=== PATIENT | male | born 1955 | race African-American/Black ===

== ENCOUNTER 2018-01-16 14:22 | Inpatient (IN) | payer OTHER ==
[~2018-01-16] VITALS: Ht 193 cm; Wt 145.6 kg
--- NOTE | ~2018-01-16 | PR ---
[place], [place] PROGRESS NOTE NAME: DHAVAL LUBIN UNIT #: [id number] ROOM: 511 DOCTOR: JONATHAN SHEFFIELD,CHARISSE BIRTHDATE: [birth year] DOS: 01/18/2018 CARDIOLOGY FOLLOWUP: REASON FOR VISIT: Chest pain and bradycardia. SUBJECTIVE: The patient is feeling better. Denies any chest pain or shortness of breath. No dizziness, no orthopnea, no PND, no fever and chills. No nausea, vomiting or diarrhea. His heart rates are better after decreasing beta blockers. REVIEW OF SYSTEMS: Review of the 8 systems negative except as mentioned above. VITAL SIGNS: Blood pressure 136/76, pulse 60, respiratory rate 20. RHYTHM STRIPS: The patient in sinus rhythm with occasional sinus bradycardia. PHYSICAL EXAMINATION GENERAL: The patient is alert and oriented, in no acute distress. HEENT: Pupils are round and equal. No jaundice. Tongue was moist and pharynx was clear. NECK: Supple, no distended neck veins, no carotid bruit. CHEST: Symmetrical, nontender. LUNGS: Clear to auscultation bilaterally. HEART: Regular rhythm, no S3, no palpable thrills. ABDOMEN: Benign, nontender. Bowel sounds normal. EXTREMITIES: Positive for obesity. EXTREMITIES: Showed no edema. Distal pulses palpable. SKIN: Warm and dry. No cyanosis, no clubbing. GENITOURINARY: Deferred. RECTAL: Deferred. List of medications and labs reviewed as available. IMPRESSION: 1. Chest pain, atypical, myocardial infarction ruled out. 2. Sinus bradycardia, stable after decreasing beta blockers. 3. Coronary artery disease, status post 2 stents in 2004, details unknown. 4. Hypertension, stable. 5. Non-morbid obesity, the patient is counseled for diet, exercise and weight loss. 6. The patient wanted to go home today and then come back as an outpatient for his stress test. 7. Lexiscan stress test next week. 8. Recommend starting statins due to his known coronary artery disease. 9. Continue rest of his cardiac medications and he will be discharged home today and he will schedule for outpatient Lexiscan stress test. 10. Follow up with [facility] after his stress test. [place], [place] PROGRESS NOTE NAME: DHAVAL LUBIN UNIT #: [id number] ROOM: 511 DOCTOR: CHARISSE CASTILLO MD BIRTHDATE: [birth year] CHARISSE CASTILLO MD CM:MARTÍNEZ [id number] CHARISSE CASTILLO MD 01/19/187 interface
--- NOTE | ~2018-01-16 | CON ---
[place], [place] REPORT OF CONSULTATION NAME: DHAVAL LUBIN UNIT #: [id number] ROOM: 511 DOCTOR: CHARISSE CASTILLO MD BIRTHDATE: [birth year] DOS: 01/17/2018 CARDIOLOGY CONSULTATION. REASON FOR CONSULTATION: Chest pain. CLINICAL HISTORY: The patient is 62-year-old with a history of coronary artery disease, hypertension, dyslipidemia, GE acid reflux, came to Emergency Room for chest pain. His pain started about 4 days ago, is a constant sharp pain in the pericardial area. He also has some right-sided jaw pain that radiates to or through the right neck and then towards his center of the chest. This pain is more of a constant pain. He does not recall that this occurs on exertion. He has no associated symptoms. The patient had occasional twinging sensation near the left chest area that started yesterday. He did have some 1 time nausea and lightheadedness with this left-sided chest pain, but denies any shortness of breath. No PND, no orthopnea. He had longstanding tobacco use, but quit in 10/2017 and he gained about 10-15 pounds since then. He was admitted to the hospital and Cardiology consulted for further recommendations. At the time of my examination, the patient is alert. Denies any chest pain, shortness of breath. No palpitation, no dizziness, no orthopnea, no fever and chills. No nausea, vomiting, diarrhea. No headache. No tingling, numbness or weakness. No neurologic symptoms. So, apparently this pain started in the right jaw area with radiation down his right neck and then towards his chest. The symptom and pain was relieved by itself. REVIEW OF SYSTEMS: Review of the 10 system negative except as mentioned above. PAST MEDICAL HISTORY: 1. Coronary artery disease, status post 2 stents in 2004 at [facility]. 2. Hypertension. 3. Dyslipidemia. 4. Obesity. 5. Bipolar disorder. 6. Dyslipidemia. 7. Acid reflux. PAST SURGICAL HISTORY: 1. Cardiac enzymes. 2. Hernia surgery. 3. Deviated nasal septum surgery. 4. Cholecystectomy. 5. Left hip replacement. 6. Carpal tunnel surgery. SOCIAL HISTORY: The patient is a smoker and smoked about 20 years, a pack a day and quit in 10/2017. The patient does not use illicit drugs, but does drink 4-5 beers. ALLERGIES: The patient is allergic to SULFA, BENADRYL, and SEROQUEL. [place], [place] REPORT OF CONSULTATION NAME: DHAVAL LUBIN UNIT #: [id number] ROOM: [facility] DOCTOR: CHARISSE CASTILLO MD BIRTHDATE: [birth year] HOME MEDICATIONS: Reviewed including metoprolol and Glucotrol. FAMILY HISTORY: Father at 69 from heart failure. Mother at age 90 from dementia. PHYSICAL EXAMINATION: VITAL SIGNS: Blood pressure 136/86, pulse 83, respiratory rate 16, weight 145.6 kilos with a BMI 39.1. GENERAL: Alert, comfortable, in no acute distress. HEENT: Pupils round, equal. No jaundice. Tongue was moist and pharynx was clear. NECK: Supple, no distended neck veins, no carotid bruit. CHEST: Symmetrical, nontender. LUNGS: Clear to auscultation bilaterally. HEART: Regular rhythm, no S3, no palpable thrills. ABDOMEN: Benign, nontender. Bowel sounds normal. EXTREMITIES: Showed no edema. Distal pulses palpable. SKIN: Warm and dry. No cyanosis, no clubbing. RECTAL: Deferred. GENITOURINARY: Deferred. MUSCULOSKELETAL: No joint tenderness or swelling. Medications, allergies and EKG reviewed. EKG shows sinus rhythm, no acute ischemic changes. LABORATORY DATA: Significant chemistry unremarkable. Hemoglobin 10.8, platelets 186,000. Potassium 4.7, creatinine 1.35. Cardiac troponins are negative x 2. IMPRESSION: 1. Chest pain, atypical. 2. Sinus bradycardia, asymptomatic. 3. Chronic kidney disease. 4. Coronary artery disease status post 2 stents in 2004, details unknown. 5. Non-morbid obesity. 6. Anemia. 7. Bipolar disorder. 8. Tobacco use, quit 10/2017. 9. Diabetes, currently on insulin. RECOMMENDATIONS: 1. Currently, denies any chest pain. 2. Decrease metoprolol 25 b.i.d. and monitor his blood pressures and heart rates. 3. The patient had a stress test a little over a year ago in [place], the reports are not available. 4. Continue current cardiac medications. 5. I would recommend Lexiscan stress test. The patient would like to go home and come back as outpatient for stress test. [place], [place] REPORT OF CONSULTATION NAME: DHAVAL LUBIN UNIT #: [id number] ROOM: 511 DOCTOR: JONATHAN SHEFFIELD,CHARISSE BIRTHDATE: [birth year] 6. Continue current medications including aspirin, Plavix, metoprolol and Lasix. 7. I would recommend starting a statin therapy for known coronary artery disease. 8. Risk factor modification was discussed. 9. If the heart rate remains stable, possibly he will be discharged home tomorrow and we will schedule for outpatient stress test and echo. 10. We would like him to follow with [facility] in the future for his cardiac care. 11. There is no family at bedside at the time of examination. CHARISSE CASTILLO MD CM:CONSTR:REPORT OF CONSULTATION 42 01/20/18 0046 interface
[2018-01-16 14:33] VITALS: BP 142/67
[2018-01-16 14:42] LABS: BASO % 0.7 % (0.0-1.0); EOS # 0.3 10*3/uL (0.0-0.4); EOS % 4.6 % (1.0-4.0); HEMATOCRIT 33.7 % (42.0-52.0); HEMOGLOBIN 10.8 g/dl (14.0-18.0); LYMPH # 1.3 10*3/uL (1.3-4.4); MEAN CELL VOLUME 92.1 fl (80.0-94.0); MEAN CORPUSCULAR HGB 29.5 pg (27.0-31.0); MEAN PLATELET VOLUME 11.1 fl (9.6-12.3); MONO # 0.8 10*3/uL (0.1-1.0); NEUT # 3.5 10*3/uL (2.3-7.9); NEUT % 59.2 % (47.0-73.0); PLATELET COUNT AUTOMATED 186 10*3/uL (130-400); RED BLOOD COUNT 3.66 10*6/uL (4.50-5.90); RED CELL DISTRI WIDTH 15.5 % (0-14.5); WHITE BLOOD COUNT 5.9 10*3/uL (4.8-10.8)
[2018-01-16 14:52] LABS: ACT PARTIAL THROMBO TIME 25.5 SECONDS (20.8-31.5)
[2018-01-16 14:59] LABS: ALBUMIN 3.2 gm/dl (3.1-4.5); ALKALINE PHOSPHATASE 72 U/L (45-117); BUN 22 mg/dl (7-24); CHLORIDE 104 mmol/L (98-107); CREATININE 1.35 mg/dL (0.70-1.30); POTASSIUM 4.7 mmol/L (3.5-5.1); SGOT/AST 25 IU/L (3-35); SGPT/ALT 30 U/L (12-78); SODIUM 139 mmol/L (136-145); TOTAL PROTEIN 7.4 gm/dL (6.4-8.2)
[2018-01-16 15:01] LABS: TROPONIN I < 0.015 ng/ml (<0.045)
[2018-01-16 15:27] VITALS: BP 142/67
[2018-01-16 15:50] VITALS: BP 111/49
[2018-01-16 16:08] VITALS: BP 111/49
[2018-01-16 20:00] VITALS: BP 136/62
[2018-01-16] MEDS ORDERED: METOPROLOL SUC100 M2 PO (20:48)
[2018-01-16] MEDS ORDERED: GLUCOTROL10 MG PO (20:49)
[2018-01-17] VITALS: BP 147/76
[2018-01-17 06:58] LABS: BASO % 0.6 % (0.0-1.0); EOS # 0.3 10*3/uL (0.0-0.4); EOS % 4.3 % (1.0-4.0); HEMATOCRIT 34.7 % (42.0-52.0); LYMPH # 1.3 10*3/uL (1.3-4.4); LYMPH % 21.2 % (27.0-41.0); MEAN CELL VOLUME 91.8 fl (80.0-94.0); MEAN CORPUSCULAR HGB 29.1 pg (27.0-31.0); MEAN CORPUSCULAR HGB CONC 31.7 g/dl (33.0-37.0); MEAN PLATELET VOLUME 11.6 fl (9.6-12.3); MONO # 0.7 10*3/uL (0.1-1.0); MONO % 10.7 % (3.0-9.0); NEUT # 3.9 10*3/uL (2.3-7.9); NEUT % 62.9 % (47.0-73.0); PLATELET COUNT AUTOMATED 187 10*3/uL (130-400); RED BLOOD COUNT 3.78 10*6/uL (4.50-5.90); RED CELL DISTRI WIDTH 15.7 % (0-14.5); WHITE BLOOD COUNT 6.2 10*3/uL (4.8-10.8)
[2018-01-17 07:11] LABS: BUN 20 mg/dl (7-24); CHLORIDE 104 mmol/L (98-107); CHOLESTEROL 112 mg/dL (<200); CREATININE 1.29 mg/dL (0.70-1.30); PHOSPHOROUS 3.3 mg/dL (2.5-4.9); POTASSIUM 4.2 mmol/L (3.5-5.1); SODIUM 139 mmol/L (136-145); TRIGLYCERIDES 96 mg/dl (<150); VLDL CHOLESTEROL 19 mg/dL (6-40)
[2018-01-17 07:22] LABS: HDL CHOLESTEROL 49 mg/dl (40-60); LDL CHOLESTEROL 44 mg/dL (9-159)
[2018-01-17 08:00] VITALS: BP 133/91
[2018-01-17 08:21] LABS: VITAMIN D, 25-HYDROXY 25.1 ng/mL (30-100)
[2018-01-17] MEDS ORDERED: METOPROLOL TAR100 M1 PO (09:02)
[2018-01-17] MEDS ORDERED: HYDR25T PO (09:03)
[2018-01-17] MEDS ORDERED: ZESTRIL30 M3 PO (09:04)
[2018-01-17] MEDS ORDERED: ACTOS45 M1 PO (09:04)
[2018-01-17] MEDS ORDERED: ASPIRIN81 M1 PO (09:06)
[2018-01-17] MEDS ORDERED: PLAVIX75 M1 PO (09:06)
[2018-01-17] MEDS ORDERED: SERTRALINE HYD100 MG PO (09:08)
[2018-01-17] MEDS ORDERED: OMEPRAZOLE20 M2 PO (09:09)
[2018-01-17] MEDS ORDERED: LANTUS SOL100 UNIT/1 SQ (09:10)
[2018-01-17] MEDS ORDERED: ISOSORBIDE30 MG PO (09:11)
[2018-01-17] MEDS ORDERED: NEURONTIN300 MG PO (09:18)
[2018-01-17 12:00] VITALS: BP 136/84
[2018-01-17 16:20] VITALS: BP 127/61
[2018-01-17 20:48] VITALS: BP 115/59
[2018-01-18] VITALS: BP 139/77
[2018-01-18 08:00] VITALS: BP 136/76
[2018-01-18 12:00] VITALS: BP 126/73
[2018-01-18] MEDS ORDERED: LOPRESSOR25 MG PO (15:02)
== END 2018-01-18 15:39 | disposition home or self-care (01) | DRG 313 ==
LOC: ED 14:22 → EDHOLD 15:31 → 5E 16:01
PROVIDERS: Emergency Medicine; Family Medicine
DX: R07.89 Other chest pain (principal); I25.10 Atherosclerotic heart disease of native coronary artery without angina pectoris; E11.22 Type 2 diabetes mellitus with diabetic chronic kidney disease; E78.5 Hyperlipidemia, unspecified; K21.9 Gastro-esophageal reflux disease without esophagitis; F31.9 Bipolar disorder, unspecified; D64.9 Anemia, unspecified; I12.9 Hypertensive chronic kidney disease with stage 1 through stage 4 chronic kidney disease, or unspecified chronic kidney disease; Z96.642 Presence of left artificial hip joint; N18.2 Chronic kidney disease, stage 2 (mild); E11.65 Type 2 diabetes mellitus with hyperglycemia; E66.8 Other obesity; R00.1 Bradycardia, unspecified; I25.2 Old myocardial infarction; Z95.5 Presence of coronary angioplasty implant and graft; Z79.4 Long term (current) use of insulin; Z87.891 Personal history of nicotine dependence; Z82.49 Family history of ischemic heart disease and other diseases of the circulatory system; Z86.73 Personal history of transient ischemic attack (TIA), and cerebral infarction without residual deficits; Z90.49 Acquired absence of other specified parts of digestive tract; Z88.2 Allergy status to sulfonamides; Z81.8 Family history of other mental and behavioral disorders; Z88.8 Allergy status to other drugs, medicaments and biological substances; Z79.899 Other long term (current) drug therapy; Z68.39 Body mass index [BMI] 39.0-39.9, adult